=== PATIENT | female | born 1950 | race Caucasian/White ===

== ENCOUNTER → 2016-09-30 | Outpatient (CLI) | payer OTHER ==
[~2016-09-30] MED LIST: ALPRAZOLAM0.25 M2 PO; COUMADIN6 M1 PO; FUROSEMIDE80 MG PO; K-Dur 20MEQ20 MEQ PO; KLOR-CON M2020 ME1 PO; LASIX20 MG PO; NORVASC5 MG PO; NYSTATIN OINTME30 GM T; PAROXETINE HCL20 MG PO; PAROXETINE20 MG PO; PROAIR HFA0.09 MG/AC INH; Septra Ds 800 M1 TAB PO; VITAMIN D-32000 UNIT PO; XANAX0.25 MG PO; ZESTRIL20 MG PO
== END | disposition home or self-care (01) ==
LOC: MAMMO 09-15 14:30
DX: Z12.31 Encounter for screening mammogram for malignant neoplasm of breast (principal)

== ENCOUNTER 2017-03-25 11:57 | Inpatient (IN) | payer OTHER ==
[~2017-03-25] VITALS: Ht 205.7 cm; Wt 140.3 kg
[~2017-03-25 11:57] MED LIST changes: -COUMADIN6 M1 PO; +COUMADIN6 M2 PO
[2017-03-25 12:05] VITALS: BP 152/92
[2017-03-25 12:44] LABS: BASO % 0.1 % (0.0-1.0); EOS % 0.3 % (1.0-4.0); HEMATOCRIT 39.2 % (37.0-47.0); HEMOGLOBIN 12.7 g/dl (12.0-16.0); LYMPH # 1.4 10*3/uL (1.3-4.4); LYMPH % 18.2 % (27.0-41.0); MEAN CELL VOLUME 92.5 fl (81.0-99.0); MEAN CORPUSCULAR HGB CONC 32.4 g/dl (33.0-37.0); MEAN PLATELET VOLUME 9.8 fl (9.6-12.3); MONO # 0.5 10*3/uL (0.1-1.0); NEUT # 5.5 10*3/uL (2.3-7.9); NEUT % 73.9 % (47.0-73.0); PLATELET COUNT AUTOMATED 205 10*3/uL (130-400); RED BLOOD COUNT 4.24 10*6/uL (4.10-5.10); RED CELL DISTRI WIDTH 12.5 % (0-14.5); WHITE BLOOD COUNT 7.4 10*3/uL (4.8-10.8)
[2017-03-25 12:53] LABS: ACT PARTIAL THROMBO TIME 28.7 SECONDS (20.8-31.5); INTERNATIONAL NORM RATIO 1.9 (2.0-3.5)
[2017-03-25 13:02] VITALS: BP 133/81
[2017-03-25 13:02] LABS: ALBUMIN 3.4 gm/dl (3.1-4.5); ALKALINE PHOSPHATASE 65 U/L (45-117); BUN 15 mg/dl (7-24); CHLORIDE 102 mmol/L (98-107); CREATININE 1.03 mg/dL (0.55-1.02); LIPASE 136 U/L (73-393); MAGNESIUM 2.2 mg/dL (1.5-2.1); POTASSIUM 3.6 mmol/L (3.5-5.1); SGOT/AST 36 IU/L (3-35); SGPT/ALT 32 U/L (12-78); SODIUM 139 mmol/L (136-145); TOTAL PROTEIN 7.3 gm/dL (6.4-8.2)
[2017-03-25 13:04] LABS: TROPONIN I < 0.015 ng/ml (<0.045)
--- NOTE | 2017-03-25 13:53 | NUR ---
PT TO CT SCAN AT THIS TIME---CESILIA BARRERA RN
[2017-03-25 15:46] VITALS: BP 113/69
[2017-03-25 17:21] VITALS: BP 129/48
--- NOTE | 2017-03-25 17:38 | NUR ---
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 Pt. arrived via bed from ER. Chief complaint: LLQ ABD PAIN R/T CONSTIPATION. EUNICE CRESPO
[2017-03-25] MEDS ORDERED: ZOCOR20 MG PO (18:17)
[2017-03-25] MEDS ORDERED: AMLODIPINE BESYL5 MG PO (18:17)
[2017-03-25 20:00] VITALS: BP 138/61
--- NOTE | 2017-03-25 21:00 | NUR ---
RESTING IN BED WITH EYES CLOSED. RESPIRATIONS EASY. LUNGS DIMINISHED. PULSE OX 97% RA. ABD SOFTLY OBESE WITH NORMOACTIVE BOWEL SOUNDS. NO ACTIVE BM DESPITE RECEIVING MAG CITRATE AND LACTULOSE. BLE DISCOLORED, CHRONIC IN NATURE. IV FLUIDS INFUSING PER ORDER. CALL LIGHT WITHIN REACH. NO VOICED COMPLAINTS
[2017-03-26] VITALS: BP 97/52
--- NOTE | 2017-03-26 | NUR ---
SLEEPING. NO DISTRESS NOTED. VSS. IV FLUIDS MAINTAINED. CALL LIGHT WITHIN REACH
--- NOTE | 2017-03-26 03:00 | NUR ---
SLEEPING. IV FLUIDS MAINTAINED. CALL LIGHT WITHIN REACH
--- NOTE | 2017-03-26 06:00 | NUR ---
SLEPT THROUGHOUT NIGHT WITH NO DISTRESS NOTED. RESPIRATIONS EASY. MINIMAL RESULTS FROM EARLIER LAXATIVES. IV FLUIDS MAINTAINED. CALL LIGHT WITHIN REACH. NO VOICED COMPLAINTS THIS SHIFT
[2017-03-26 06:11] LABS: BASO % 0.4 % (0.0-1.0); EOS # 0.1 10*3/uL (0.0-0.4); EOS % 1.7 % (1.0-4.0); HEMATOCRIT 38.2 % (37.0-47.0); HEMOGLOBIN 11.7 g/dl (12.0-16.0); LYMPH # 1.8 10*3/uL (1.3-4.4); LYMPH % 37.5 % (27.0-41.0); MEAN CELL VOLUME 95.5 fl (81.0-99.0); MEAN CORPUSCULAR HGB 29.3 pg (27.0-31.0); MEAN CORPUSCULAR HGB CONC 30.6 g/dl (33.0-37.0); MEAN PLATELET VOLUME 10.4 fl (9.6-12.3); MONO # 0.5 10*3/uL (0.1-1.0); MONO % 9.9 % (3.0-9.0); NEUT # 2.4 10*3/uL (2.3-7.9); NEUT % 50.1 % (47.0-73.0); PLATELET COUNT AUTOMATED 201 10*3/uL (130-400); WHITE BLOOD COUNT 4.8 10*3/uL (4.8-10.8)
[2017-03-26 06:43] LABS: ALBUMIN 3.2 gm/dl (3.1-4.5); BUN 14 mg/dl (7-24); CHLORIDE 104 mmol/L (98-107); CHOLESTEROL 174 mg/dL (<200); CREATININE 1.02 mg/dL (0.55-1.02); MAGNESIUM 2.6 mg/dL (1.5-2.1); PHOSPHOROUS 4.2 mg/dL (2.5-4.9); POTASSIUM 3.9 mmol/L (3.5-5.1); SGOT/AST 26 IU/L (3-35); SGPT/ALT 28 U/L (12-78); SODIUM 141 mmol/L (136-145); TRIGLYCERIDES 105 mg/dl (<150); VLDL CHOLESTEROL 21 mg/dL (6-40)
[2017-03-26 06:51] LABS: ALKALINE PHOSPHATASE 57 U/L (45-117); HDL CHOLESTEROL 53 mg/dl (40-60); LDL CHOLESTEROL 100 mg/dL (9-159); TOTAL PROTEIN 6.6 gm/dL (6.4-8.2)
[2017-03-26 06:53] LABS: INTERNATIONAL NORM RATIO 1.7 (2.0-3.5)
[2017-03-26 06:58] LABS: VITAMIN D, 25-HYDROXY 37.7 ng/mL (30-100)
[2017-03-26 07:38] LABS: BILIRUBIN 1+ (NEGATIVE); BLOOD NEGATIVE (NEGATIVE); CLARITY SL CLOUDY (CLEAR); COLOR YELLOW (YELLOW); GLUCOSE NEGATIVE (NEGATIVE); KETONE TRACE (NEGATIVE); LEUKO ESTERASE NEGATIVE (NEGATIVE); NITRITE NEGATIVE (NEGATIVE); PH 5.5 (5.0-9.0); UROBILINOGEN 0.2 E.U./dl (0.2-1.0)
--- NOTE | 2017-03-26 07:38 | NUR ---
PATIENT COMPLAINING OF BEING COLD. WARM BLANKET APPLIED. THEN PATIENT COMPLAINED OF ALL OVER BODY ACHES RATING A 5/10 ON PAINSCALE. TYLENOL 650MG GIVEN. BED IS IN LOW POSITION. CALL LIGHT WITHIN REACH.
[2017-03-26 07:47] LABS: BACTERIA TRACE; WBC 0-2 wbc/hpf (0-5)
[2017-03-26 08:00] VITALS: BP 137/70
--- NOTE | 2017-03-26 08:34 | NUR ---
PATIENT STATES THAT THE TYLENOL IS WORKING.
[2017-03-26 12:00] VITALS: BP 122/55
--- NOTE | 2017-03-26 12:26 | NUR ---
TYLENOL 650MG GIVEN FOR ABDOMINAL CRAMPING RATING A 10/10 ON PAINSCALE.
[2017-03-26] MEDS ORDERED: MIRALAX POWDER17 G1 PO (13:05)
[2017-03-26] MEDS ORDERED: AUGMENTIN 875875 MG PO (13:05)
--- NOTE | 2017-03-26 13:40 | NUR ---
PT CRYING HYSTERICALLY AND TRASHING ABOUT ON BED. STATES SHE AM HAVING PAIN AND THAT SHE CAN'T GO HOME LIKE THIS BECAUSE SHE HAS NO ONE TO TAKE CARE OF HER. DR ARORA NOTIFIED PER Harris PITTS RN OF PT C/O PAIN. AND STATES SHE WILL PUT ORDERS IN
--- NOTE | 2017-03-26 14:00 | NUR ---
MEDICATED WITH BENTYL AND TORODAL ORDERED. PT CONTINUES TO CRY BUT IS MUCH CALMER NOW THEN PREVIOUSLY.
--- NOTE | 2017-03-26 14:35 | NUR ---
PT RESTING QUIETLY WITH EYES CLOSED.
[2017-03-26 16:00] VITALS: BP 122/60
--- NOTE | 2017-03-26 16:17 | NUR ---
PT UP TO BSC TO HAVE EXTRA LARGE FORMED AND LOOSE BM AND PASS A LOT OF GAS.
--- NOTE | 2017-03-26 19:16 | NUR ---
DISCHARGED TO HOME IN CARE OF SELF VIA CAB. PT UPSET ABOUT BEING DISCHARGED, STATES I HAVE DIARRHEA NOW. EXPLAINED THAT SHE HAD A LOT OF LAXATIVES AND THAT LOOSE STOOL SHOULD BE EXPECTED. THREW PERSCRIPTIONS AT ME AND SAID TO TELL THE DOCTOR I AM NOT TAKING THOSE. UPSET THAT SHE WAS GETTING A SCRIPT FOR MIRALAX WHEN SHE HAS DIARRHEA, ATTEMPTED TO TELL PT THAT IT WAS SO SHE DID NOT GET CONSTIPATED AGAIN, BUT REFUSES TO LISTEN. ALSO SAYS SHE DOES NOT KNOW WHY SHE NEEDS AN ANTIBIOTIC BECAUSE THE DOCTOR DID NOT EVEN TELL HER WHY SHE NEEDED IT. PT DID TAKE THE FLU VACCINE BEFORE DISCHARGE.
== END 2017-03-26 19:16 | disposition home or self-care (01) | DRG 392 ==
LOC: ED 11:57 → 4E 16:47 → EDHOLD 16:47 → 4E 17:01
PROVIDERS: Emergency Medicine; Internal Medicine; ADMIT Internal Medicine
DX: K59.00 Constipation, unspecified (principal); E87.2 Acidosis; D68.9 Coagulation defect, unspecified; E44.1 Mild protein-calorie malnutrition; F33.9 Major depressive disorder, recurrent, unspecified; N18.3 Chronic kidney disease, stage 3 (moderate); F41.1 Generalized anxiety disorder; E66.01 Morbid (severe) obesity due to excess calories; E78.00 Pure hypercholesterolemia, unspecified; E55.9 Vitamin D deficiency, unspecified; M47.819 Spondylosis without myelopathy or radiculopathy, site unspecified; D72.825 Bandemia; R73.9 Hyperglycemia, unspecified; K04.7 Periapical abscess without sinus; I12.9 Hypertensive chronic kidney disease with stage 1 through stage 4 chronic kidney disease, or unspecified chronic kidney disease; Z68.33 Body mass index [BMI] 33.0-33.9, adult; Z79.899 Other long term (current) drug therapy; Z79.01 Long term (current) use of anticoagulants; Z90.710 Acquired absence of both cervix and uterus; Z86.718 Personal history of other venous thrombosis and embolism; Z91.012 Allergy to eggs; Z88.1 Allergy status to other antibiotic agents; Z85.42 Personal history of malignant neoplasm of other parts of uterus; Z86.711 Personal history of pulmonary embolism; Z80.8 Family history of malignant neoplasm of other organs or systems; Z82.0 Family history of epilepsy and other diseases of the nervous system

== ENCOUNTER 2019-11-11 12:44 | Inpatient (IN) | payer OTHER ==
[~2019-11-11] VITALS: Ht 154.9 cm; Wt 122.5 kg
[~2019-11-11 12:44] MED LIST changes: +AMLODIPINE BESYL5 MG PO; +AUGMENTIN 875875 MG PO; +MIRALAX POWDER17 G1 PO; +ZOCOR20 MG PO
[2019-11-11 13:12] LABS: BASO % 0.2 % (0.0-1.0); EOS % 0.1 % (1.0-4.0); HEMATOCRIT 40.5 % (37.0-47.0); LYMPH # 0.7 10*3/uL (1.3-4.4); LYMPH % 7.9 % (27.0-41.0); MEAN CELL VOLUME 94.2 fl (81.0-99.0); MEAN CORPUSCULAR HGB 29.8 pg (27.0-31.0); MEAN CORPUSCULAR HGB CONC 31.6 g/dl (33.0-37.0); MEAN PLATELET VOLUME 10.8 fl (9.6-12.3); MONO # 0.4 10*3/uL (0.1-1.0); MONO % 4.2 % (3.0-9.0); NEUT # 7.6 10*3/uL (2.3-7.9); NEUT % 86.9 % (47.0-73.0); PLATELET COUNT AUTOMATED 227 10*3/uL (130-400); RED CELL DISTRI WIDTH 13.5 % (0-14.5); WHITE BLOOD COUNT 8.7 10*3/uL (4.8-10.8)
[2019-11-11 13:18] LABS: ALBUMIN 3.3 gm/dl (3.1-4.5); ALKALINE PHOSPHATASE 96 U/L (45-117); BUN 17 mg/dl (7-24); CHLORIDE 107 mmol/L (98-107); CREATININE 1.28 mg/dL (0.55-1.02); POTASSIUM 3.6 mmol/L (3.5-5.1); SGOT/AST 24 IU/L (3-35); SGPT/ALT 21 U/L (12-78); SODIUM 142 mmol/L (136-145); TOTAL PROTEIN 6.6 gm/dL (6.4-8.2)
[2019-11-11 13:20] LABS: TROPONIN I < 0.015 ng/ml (<0.045)
[2019-11-11 13:32] VITALS: BP 117/72
[2019-11-11 14:12] LABS: INTERNATIONAL NORM RATIO 9.3 (2.0-3.5)
[2019-11-11 14:13] LABS: ACT PARTIAL THROMBO TIME 95.7 SECONDS (20.0-32.1)
--- NOTE | 2019-11-11 15:05 | NUR ---
NURSE REPORT TO SUSIE COLEMAN, FOR CONTINUATION OF CARE.
--- NOTE | 2019-11-11 15:21 | NUR ---
PT GIVEN TRAY. IN NO ACUTE DISTRESS AT THIS TIME
[2019-11-11 17:52] VITALS: BP 98/56
--- NOTE | 2019-11-11 17:52 | NUR ---
A 69, admitted to 4E, under the services of NAHED Jiang DO with a diagnosis of SUPRATHERAPUTIC INR. Chief complaint is DIZZYNESS, SOB, WEAKNESS. Patient arrived via ambulatory from ER. Monitor applied. Initial assessment completed. Vital signs taken and recorded. NAHED JIANG DO notified of admission to the unit. Orders received. See assessment for past medical history, medications and allergies. Patient and/or family oriented to unit. [facility] visitation policy reviewed. Clothing/patient valuable form completed. JAMES BAUER
[2019-11-11] MEDS ORDERED: LEVOTHYROXINE50 MCG PO (18:30)
[2019-11-11] MEDS ORDERED: SIMVASTATIN20 MG PO (18:31)
[2019-11-11] MEDS ORDERED: FUROSEMIDE40 MG PO (18:31)
[2019-11-11] MEDS ORDERED: CITALOPRAM20 MG PO (18:32)
[2019-11-11] MEDS ORDERED: LISINOPRIL20 MG PO (18:33)
--- NOTE | 2019-11-11 18:36 | NUR ---
MED REC UPDATED VIA HOME LIST PROVIDED BY PATIENT.
--- NOTE | 2019-11-11 18:54 | NUR ---
CRITIAL LACTIC ACID CALLED TO OF 3.9. NO NEW ORDERS AT THIS TIME. IVF ON EMAR.
--- NOTE | 2019-11-11 18:55 | NUR ---
AWARE OF + ORTHOSTATIC BPs.
--- NOTE | 2019-11-11 19:00 | NUR ---
ASSUMED CARE FOR THIS PT AT THIS TIME. PT HAD URINATED IN BSC. URINE SAMPLE OBTAINED FOR UA TO . URINE DARK RED BLOOD. PT C/O FEELING COLD, BLANKETS PLACED ON PT AND HEAT TURNED UP IN ROOM. PT SKIN COOL TO TOUCH AND PALE. WILL NOTIFY . BED ALARM ON W/WHEELS LOCKED AND CALL LIGHT IN REACH.
--- NOTE | 2019-11-11 19:36 | NUR ---
WOUND CARE COMPLETED PER ORDERS.
[2019-11-11 20:00] VITALS: BP 110/43
[2019-11-11 20:07] LABS: ACT PARTIAL THROMBO TIME 88.4 SECONDS (20.0-32.1); INTERNATIONAL NORM RATIO 9.3 (2.0-3.5)
--- NOTE | 2019-11-11 20:11 | NUR ---
INFORMED OF CRITICAL INR 9.3 AND APTT 88.4. ALSO INFORMED OF KELSY RED BLOOD IN URINE. SAID SHE WOULD LOOK AT PTs CHART.
[2019-11-11 20:13] LABS: BILIRUBIN 2+ (NEGATIVE); BLOOD 3+ (NEGATIVE); CLARITY CLOUDY (CLEAR); GLUCOSE NEGATIVE (NEGATIVE); KETONE NEGATIVE (NEGATIVE); SPECIFIC GRAVITY 1.015 (1.005-1.030); UROBILINOGEN 0.2 E.U./dl (0.2-1.0)
[2019-11-11 20:18] LABS: COLOR BROWN (YELLOW); LEUKO ESTERASE TRACE (NEGATIVE); NITRITE NEGATIVE (NEGATIVE)
[2019-11-11 20:19] LABS: RBC TNTC rbc/hpf (0-2)
[2019-11-11 20:20] LABS: BACTERIA TRACE
[2019-11-11 20:45] VITALS: BP 102/55
--- NOTE | 2019-11-11 21:20 | NUR ---
Received patient from nurse Mayorga. Report received. Patient stable, no signs of distress. Patient denies any shortness of breath, or chest pain. Awaiting FFP to give. Patient left with call light in reach.
[2019-11-11 21:22] LABS: BASO % 0.3 % (0.0-1.0); EOS % 0.3 % (1.0-4.0); HEMATOCRIT 36.3 % (37.0-47.0); LYMPH # 1.5 10*3/uL (1.3-4.4); LYMPH % 23.1 % (27.0-41.0); MEAN CELL VOLUME 92.8 fl (81.0-99.0); MEAN CORPUSCULAR HGB 29.4 pg (27.0-31.0); MEAN CORPUSCULAR HGB CONC 31.7 g/dl (33.0-37.0); MEAN PLATELET VOLUME 10.1 fl (9.6-12.3); MONO # 0.5 10*3/uL (0.1-1.0); MONO % 8.3 % (3.0-9.0); NEUT # 4.4 10*3/uL (2.3-7.9); NEUT % 67.7 % (47.0-73.0); PLATELET COUNT AUTOMATED 191 10*3/uL (130-400); RED BLOOD COUNT 3.91 10*6/uL (4.10-5.10); RED CELL DISTRI WIDTH 13.9 % (0-14.5); WHITE BLOOD COUNT 6.5 10*3/uL (4.8-10.8)
--- NOTE | 2019-11-11 21:30 | NUR ---
PT TRANSFERRED BACK TO ICU BED 5 VIA BED. ALL BELONGINGS SENT W/PT. REPORT GIVEN TO SUSIE CROWE.
[2019-11-11 22:30] VITALS: BP 114/50
--- NOTE | 2019-11-11 22:33 | NUR ---
FFP STARTED ON PATIENT, WILL MONITOR FOR REACTIONS.
--- NOTE | 2019-11-11 23:27 | NUR ---
24 HR chart check completed.
[2019-11-11 23:39] VITALS: BP 108/50
--- NOTE | 2019-11-11 23:40 | NUR ---
Transfusion complete. No reactions noted. Patient tolerated well.
[2019-11-12] VITALS (12 sets, daily range): BP systolic 96–120; BP diastolic 45–65
--- NOTE | 2019-11-12 | NUR ---
Patient requested something to help her sleep. Restoril given. Will monitor and reassess.
--- NOTE | 2019-11-12 01:00 | NUR ---
Patient resting, no signs of distress. Restoril effective.
[2019-11-12 04:29] LABS: BASO % 0.2 % (0.0-1.0); EOS # 0.1 10*3/uL (0.0-0.4); EOS % 1.6 % (1.0-4.0); HEMATOCRIT 30.8 % (37.0-47.0); LYMPH # 1.5 10*3/uL (1.3-4.4); LYMPH % 33.4 % (27.0-41.0); MEAN CELL VOLUME 94.2 fl (81.0-99.0); MEAN CORPUSCULAR HGB 29.1 pg (27.0-31.0); MEAN CORPUSCULAR HGB CONC 30.8 g/dl (33.0-37.0); MEAN PLATELET VOLUME 10.7 fl (9.6-12.3); MONO # 0.4 10*3/uL (0.1-1.0); MONO % 9.4 % (3.0-9.0); NEUT # 2.4 10*3/uL (2.3-7.9); NEUT % 55.2 % (47.0-73.0); PLATELET COUNT AUTOMATED 155 10*3/uL (130-400); RED BLOOD COUNT 3.27 10*6/uL (4.10-5.10); RED CELL DISTRI WIDTH 13.9 % (0-14.5); WHITE BLOOD COUNT 4.4 10*3/uL (4.8-10.8)
[2019-11-12 04:43] LABS: INTERNATIONAL NORM RATIO 1.4 (2.0-3.5)
[2019-11-12 04:59] LABS: ALBUMIN 2.9 gm/dl (3.1-4.5); ALKALINE PHOSPHATASE 82 U/L (45-117); BUN 16 mg/dl (7-24); CHLORIDE 105 mmol/L (98-107); CREATININE 0.81 mg/dL (0.55-1.02); POTASSIUM 3.5 mmol/L (3.5-5.1); SGOT/AST 19 IU/L (3-35); SGPT/ALT 20 U/L (12-78); SODIUM 141 mmol/L (136-145); TOTAL PROTEIN 5.8 gm/dL (6.4-8.2)
--- NOTE | 2019-11-12 05:50 | NUR ---
Patient had no output throughout the night, bladder scan showed less than 100. Patient denies the need to use the bedside at this time. Dr. Gutiérrez notified. Awaiting earlier output from 4E that was not documented.
--- NOTE | 2019-11-12 06:20 | NUR ---
Patient able to get up to bedside, had 300ml of blood tinged urine. Patient also had some old blood in her depends. Dr. Gifford notified.
--- NOTE | 2019-11-12 07:58 | NUR ---
MEDICATED WITH 2 TYLENOL FOR COMPLAINTS OF PAIN IN HANDS AND BUTTOCKS. RATES PAIN A 6 ON A PAIN SCALE OF 1-10
--- NOTE | 2019-11-12 08:00 | NUR ---
ORTHOS BP DONE. PATIENT IS ASYMPTOMATIC WHEN STANDING. PULSE OX 100% ON ROOM AIR. LUNGS CLEAR BILATERALLY. BRUISING NOTED TO HANDS, LEGS, BACK AND THIGHS. LOWER LEGS DISCOLORED. BP 120/64. AFEBRILE. PLACED UP INTO CHAIR WITH ASSIST TIMES ONE.
--- NOTE | 2019-11-12 09:35 | NUR ---
Nutrition Teacher in to talk to patient. Patient states lives at home alone with her family checking in on her. There are 0 steps in the home. Physician: Dr. Deanna Castrejon [facility] Home health services: none Patient's level of ADLs: MINIMAL ASSIST Patient has working utilities: yes DME: cane Follow-up physician's appointment after d/c: will be made by the hospitalist nurse director upon discharge Does patient want to access PORTAL?: no Discharge plan discussed with patient. She is sitting up in her bedside chair eating breakfast without distress noted. She states she lives alone with her family checking in on her. She is independent in her ADLs and uses a cane for ambulation due to arthritis in her knees. Discussed home health care services and she denies any home needs at this time. When medically stable she will be discharged to home. She states her brother will provide transportation on discharge. KYLE DAMON
--- NOTE | 2019-11-12 14:19 | NUR ---
MEDICATED WITH 2 TYLENOL FOR COMPLAINTS OF ALL OVER PAIN. RATES PAIN A 7 ON A PAIN SCALE OF 1-10
--- NOTE | 2019-11-12 15:00 | NUR ---
VOICES THAT TYLENOL WAS EFFECTIVE FOR PAIN
--- NOTE | 2019-11-12 19:56 | NUR ---
24 HR chart check completed.
--- NOTE | 2019-11-12 20:00 | NUR ---
Patient up in bed on phone, states the tylenol is helping with pain in her legs which she states is from not being ambulatory much lately. Patient denies any needs at this time. Patient left with call light in reach.
[2019-11-13] VITALS: BP 101/58
[2019-11-13 04:00] VITALS: BP 117/69
[2019-11-13 05:57] LABS: BUN 16 mg/dl (7-24); CHLORIDE 106 mmol/L (98-107); CREATININE 0.84 mg/dL (0.55-1.02); POTASSIUM 3.8 mmol/L (3.5-5.1); SODIUM 143 mmol/L (136-145)
[2019-11-13 06:19] LABS: BASO % 0.5 % (0.0-1.0); EOS # 0.1 10*3/uL (0.0-0.4); EOS % 3.4 % (1.0-4.0); HEMATOCRIT 32.7 % (37.0-47.0); LYMPH # 1.4 10*3/uL (1.3-4.4); LYMPH % 35.6 % (27.0-41.0); MEAN CELL VOLUME 95.9 fl (81.0-99.0); MEAN CORPUSCULAR HGB 29.3 pg (27.0-31.0); MEAN CORPUSCULAR HGB CONC 30.6 g/dl (33.0-37.0); MEAN PLATELET VOLUME 11.3 fl (9.6-12.3); MONO # 0.4 10*3/uL (0.1-1.0); MONO % 9.4 % (3.0-9.0); NEUT # 1.9 10*3/uL (2.3-7.9); NEUT % 50.6 % (47.0-73.0); PLATELET COUNT AUTOMATED 171 10*3/uL (130-400); RED BLOOD COUNT 3.41 10*6/uL (4.10-5.10); RED CELL DISTRI WIDTH 13.9 % (0-14.5); WHITE BLOOD COUNT 3.8 10*3/uL (4.8-10.8)
[2019-11-13 06:33] LABS: INTERNATIONAL NORM RATIO 1.2 (2.0-3.5)
--- NOTE | 2019-11-13 06:49 | NUR ---
Tylenol given for pain in legs and back. Patient rates 8/10. Will monitor and reassess.
--- NOTE | 2019-11-13 07:27 | NUR ---
Shift chart check completed.24 HR chart check completed.
[2019-11-13 08:00] VITALS: BP 122/60
--- NOTE | 2019-11-13 11:19 | NUR ---
EARLIER SHE WAS ASSISTED TO AMBULATE WITH HER CANE OUT OF HER ROOM TO W/C. TAKEN TO SHOWER ROOM WHERE SHE SHOWERED HERSELF. AMBULATED WITH HER CANE TO W/C AND TAKEN BACK TO HER ROOM, WHERE SHE HAS BEEN UP AND ABOUT GATHERING HER BELONGINGS FOR DISCHARGE. SHE PLANS TO EAT LUNCH AND THEN CALL A CAB TO TAKE HER HOME.
--- NOTE | 2019-11-13 13:37 | NUR ---
DISCHARGE INSTRUCTIONS TO PATIENT. PT ESCORTED TO ER ENTRANCE AND PLACED HER IN A CAB TO TAKE HER HOME. DISCHARGED WITH ALL OF HER BELONGINGS IN STABLE CONDITION.
== END 2019-11-13 13:37 | disposition home or self-care (01) | DRG 149 ==
LOC: ED 12:44 → EDHOLD 16:53 → 4E 16:53 → ICCU 16:53 → 4E 17:13 → ICCU 21:04
PROVIDERS: Internal Medicine; Student in an Organized Health Care Education/Training Program; ADMIT Emergency Medicine
PROC: 30233K1 Transfusion of Nonautologous Frozen Plasma into Peripheral Vein, Percutaneous Approach (ICD-10-PCS; principal; 2019-11-11)
DX: R42 Dizziness and giddiness (principal); E87.2 Acidosis; E44.1 Mild protein-calorie malnutrition; Z68.44 Body mass index [BMI] 60.0-69.9, adult; F33.0 Major depressive disorder, recurrent, mild; R31.0 Gross hematuria; R79.1 Abnormal coagulation profile; D72.810 Lymphocytopenia; E66.01 Morbid (severe) obesity due to excess calories; I12.9 Hypertensive chronic kidney disease with stage 1 through stage 4 chronic kidney disease, or unspecified chronic kidney disease; F41.1 Generalized anxiety disorder; K59.00 Constipation, unspecified; E78.00 Pure hypercholesterolemia, unspecified; E55.9 Vitamin D deficiency, unspecified; N18.3 Chronic kidney disease, stage 3 (moderate); R06.00 Dyspnea, unspecified; S60.222A Contusion of left hand, initial encounter; S60.221A Contusion of right hand, initial encounter; S30.0XXA Contusion of lower back and pelvis, initial encounter; S30.1XXA Contusion of abdominal wall, initial encounter; W18.30XA Fall on same level, unspecified, initial encounter; Y93.89 Activity, other specified; Y92.89 Other specified places as the place of occurrence of the external cause; Y99.8 Other external cause status; Z86.711 Personal history of pulmonary embolism; Z88.1 Allergy status to other antibiotic agents; Z91.012 Allergy to eggs; Z90.710 Acquired absence of both cervix and uterus; Z82.0 Family history of epilepsy and other diseases of the nervous system; Z80.8 Family history of malignant neoplasm of other organs or systems; Z85.42 Personal history of malignant neoplasm of other parts of uterus

== ENCOUNTER 2019-12-23 00:18 | Inpatient (IN) | payer OTHER ==
[~2019-12-23] VITALS: Ht 157.4 cm; Wt 114.8 kg
[~2019-12-23 00:18] MED LIST changes: +CITALOPRAM20 MG PO; +FUROSEMIDE40 MG PO; +LEVOTHYROXINE50 MCG PO; +LISINOPRIL20 MG PO; +SIMVASTATIN20 MG PO
[2019-12-23 00:24] VITALS: BP 100/41
[2019-12-23 01:05] LABS: BASO % 0.1 % (0.0-1.0); HEMATOCRIT 41.2 % (37.0-47.0); LYMPH # 0.6 10*3/uL (1.3-4.4); LYMPH % 5.3 % (27.0-41.0); MEAN CORPUSCULAR HGB 29.7 pg (27.0-31.0); MEAN CORPUSCULAR HGB CONC 32.3 g/dl (33.0-37.0); MEAN PLATELET VOLUME 10.7 fl (9.6-12.3); MONO # 0.7 10*3/uL (0.1-1.0); MONO % 6.2 % (3.0-9.0); NEUT # 10.2 10*3/uL (2.3-7.9); NEUT % 87.8 % (47.0-73.0); PLATELET COUNT AUTOMATED 238 10*3/uL (130-400); RED BLOOD COUNT 4.48 10*6/uL (4.10-5.10); RED CELL DISTRI WIDTH 14.4 % (0-14.5); WHITE BLOOD COUNT 11.6 10*3/uL (4.8-10.8)
[2019-12-23 01:21] LABS: ALBUMIN 3.7 gm/dl (3.1-4.5); ALKALINE PHOSPHATASE 74 U/L (45-117); BUN 20 mg/dl (7-24); CHLORIDE 105 mmol/L (98-107); CREATININE 2.36 mg/dL (0.55-1.02); POTASSIUM 3.2 mmol/L (3.5-5.1); SGOT/AST 16 IU/L (3-35); SGPT/ALT 14 U/L (12-78); SODIUM 137 mmol/L (136-145); TOTAL PROTEIN 7.6 gm/dL (6.4-8.2)
[2019-12-23 01:23] LABS: TROPONIN I < 0.015 ng/ml (<0.045)
[2019-12-23 01:28] LABS: INTERNATIONAL NORM RATIO > 9.3 (2.0-3.5)
[2019-12-23 02:36] LABS: BILIRUBIN 1+ (NEGATIVE); BLOOD 3+ (NEGATIVE); CLARITY CLOUDY (CLEAR); COLOR YELLOW (YELLOW); GLUCOSE NEGATIVE (NEGATIVE); KETONE TRACE (NEGATIVE); LEUKO ESTERASE NEGATIVE (NEGATIVE); NITRITE NEGATIVE (NEGATIVE); UROBILINOGEN 0.2 E.U./dl (0.2-1.0)
--- NOTE | 2019-12-23 02:41 | NUR ---
PT REFUSED WOUND PICTURES. DOCUMENTED 2 WOUNDS NOTED TO REYNA UNDER BREASTS.
[2019-12-23 02:50] VITALS: BP 114/43
--- NOTE | 2019-12-23 02:50 | NUR ---
A 69, admitted to , under the services of NAHED Jiang DO with a diagnosis of NANCY, COUMADIN TOXICITY, SEPSIS. Chief complaint is FALLS. Patient arrived via bed from ER. Monitor applied. Initial assessment completed. Vital signs taken and recorded. NAHED JIANG DO / DR AMBRIZ notified of admission to the unit. Orders received. See assessment for past medical history, medications and allergies. Patient and/or family oriented to unit. [facility] visitation policy reviewed. Clothing/patient valuable form completed. JAMES MCNALLY
[2019-12-23 02:51] LABS: EPITHELIAL CELLS 41-50
[2019-12-23 02:52] LABS: RBC 31-40 rbc/hpf (0-2)
[2019-12-23 02:53] LABS: BACTERIA 2+
--- NOTE | 2019-12-23 03:00 | NUR ---
PT TRANSPORTED TO AT THIS TIME IN STABLE CONDITION. BEDSIDE REPORT GIVEN TO SUSIE RAMIREZ.
--- NOTE | 2019-12-23 03:31 | NUR ---
ARIANNE VALLEJO [id number] Please refer to the physician's history and physical for past medical history, comorbid conditions, and allergies. Diagnosis: NANCY(ACUTE KIDNEY INJURY) COUMADIN TOXICITY SEPSIS Jed Score: 17,AT RISK WOUND DESCRIPTIONS: Wound Number: 1 Location of the wound: right and left breast Type of wound: fungal Thickness: Partial Size: 13.0cm x 49.5cm x 0.1cm Tunneling: none Undermining: none Sinus Tract: none Presence of Exudate: Serous Amount: Light Color: Red Odor: Musty Periwound Skin Appearance: Normal Wound edges: approximated Pain (associated with wound): none at time of assessment How does patient state this happened? pt states this started about one month ago and she states that this happens when it gets warmer outside typically Wound Number: 2 Location of the wound: bilateral groins and periarea Type of wound: fungal Thickness: Partial Tunneling: none Undermining: none Sinus Tract: none Presence of Exudate: none Amount: None Color: Red and blanchable Odor: None Periwound Skin Appearance: Normal Wound edges: closed Pain (associated with wound): none at time of assessment How does patient state this happened? pt states this started about one month ago and she states that this happens when it gets warmer outside Patient bilateral feet ecchymotic areas noted at time of assessment. Patient states this is from her fall on the concrete. No open areas noted at time of assessment. Entire buttocks is red and blanchable. No open areas noted at time of assessment. Patient states she was incontient of feces this afternoon and was unable to clean herself because she was unable to reach her back. Bed bath given at this time along with Jenae RICHARDS. Surface the patient is resting on: Position Pro SKIN PREVENTION RECOMMENDATION: 1. Pressure redistribution support surface as appropriate 2. Elevate heels 3. Remove boots/TEDS every shift and reapply 4. Head of bed 30 degrees as tolerated 5. Assess nutrition and hydration 6. Manage moisture 7. Avoid the use of containment devices while in bed 8. Use absorptive products on surfaces limit layers of linens on bed 9. Turn and reposition every 1-2 hours in bed and every 1 hour in chair as tolerated 10. Weight shifts every 15 minutes while up in chair 11. Offloading with pillows or device to keep heels elevated off bed 12. Monitor skin at least every shift 13. Inspect under medical devices twice a day WOUND TREATMENT RECOMMENDATIONS: Wheelchair cushion when oob Heel raiser pro boots to bilateral feet Cleanse entire buttocks with soap and water and apply hydraguard every shift and prn for soiling Cleanse bilateral breasts, periarea and bilateral groins with soap and water pat areas dry then apply nystatin powder every 8 hours.
--- NOTE | 2019-12-23 04:00 | NUR ---
VOMITING LARGE EMSIS OF UNDIGESTED FOOD. MEDICATED WITH ZOFRAN PER PRN ORDER. IV FLUIDS MAINTAINED. WILL MONITOR
--- NOTE | 2019-12-23 04:40 | NUR ---
MEDS EFFECTIVE. RESTING WITH EYES CLOSED. RESPIRATIONS EASY.
--- NOTE | 2019-12-23 04:48 | NUR ---
Patient states she will care for these areas when she returns home and doesn't wish to follow up in an outpatient setting at this time
--- NOTE | 2019-12-23 05:20 | NUR ---
DR AMBRIZ CONTACTED, INFORMED MED REC UP TO DATE. QUESTIONED REGARDING TREATMENT OF CRITICAL INR, NO FURTHER ORDERS RECEIVED AT THIS TIME
[2019-12-23 06:28] LABS: BASO % 0.1 % (0.0-1.0); HEMATOCRIT 37.1 % (37.0-47.0); LYMPH % 10.6 % (27.0-41.0); MEAN CELL VOLUME 91.2 fl (81.0-99.0); MEAN CORPUSCULAR HGB 30.2 pg (27.0-31.0); MEAN CORPUSCULAR HGB CONC 33.2 g/dl (33.0-37.0); MEAN PLATELET VOLUME 11.3 fl (9.6-12.3); MONO # 0.6 10*3/uL (0.1-1.0); MONO % 6.7 % (3.0-9.0); NEUT # 7.5 10*3/uL (2.3-7.9); NEUT % 81.9 % (47.0-73.0); PLATELET COUNT AUTOMATED 203 10*3/uL (130-400); RED BLOOD COUNT 4.07 10*6/uL (4.10-5.10); RED CELL DISTRI WIDTH 14.4 % (0-14.5); WHITE BLOOD COUNT 9.2 10*3/uL (4.8-10.8)
[2019-12-23 06:48] LABS: ALBUMIN 3.3 gm/dl (3.1-4.5); CREATININE 1.71 mg/dL (0.55-1.02); POTASSIUM 3.2 mmol/L (3.5-5.1); TOTAL PROTEIN 6.7 gm/dL (6.4-8.2)
[2019-12-23 06:54] LABS: THYROID STIM HORMONE (HS) 2.6 uIU/ml (0.358-4.75)
[2019-12-23 07:11] LABS: INTERNATIONAL NORM RATIO > 9.3 (2.0-3.5)
--- NOTE | 2019-12-23 07:28 | NUR ---
ANSWERING SERVICE NOTIFIED OF NEW CONSULT.
--- NOTE | 2019-12-23 07:30 | NUR ---
PATIENT RESTING IN BED. PT CO FREQUENT FALLS. DENIES N/V/D. DENIES ANY PAIN. ASSESSMENT COMPLETE. RESPS EASY AND REGULAR. ROOM AIR. LAST BM 12/21. CALL LIGHT WITHIN REACH. BED IN LOWEST POSTION, BED ALARM ON.
--- NOTE | 2019-12-23 07:30 | NUR ---
NOTIFIED OF CRITICAL INR > 9.3.
--- NOTE | 2019-12-23 07:55 | NUR ---
Dr. Gutiérrez notified of wound care recommendations.
[2019-12-23 08:00] VITALS: BP 108/61
--- NOTE | 2019-12-23 08:49 | NUR ---
INFORMED PTS MEDS NEED CONTINUED AND ORTHOS WERE NEGATIVE, PT ASYMPTOMATIC.
[2019-12-23 09:19] LABS: VITAMIN D, 25-HYDROXY 61.7 ng/mL (30-100)
[2019-12-23 12:00] VITALS: BP 110/56
--- NOTE | 2019-12-23 14:00 | NUR ---
NURSES MARY LOZANO INFORMED ME PATIENT HAS NOT URINATED ALL DAY. TALKED TO PATIENT AND SHE STATES SHE URINATED THIS MORNING BEFORE WE GOT HERE AND HASN'T FELT LIKE SHE HAD TO URINATE SINCE. BLADDER SCANNED PATIENT AT THIS TIME GREATEST AMOUNT FOUND TO BE 97. CHECKED PATIENT AND PATIENT WAS WET AT THIS TIME. CHANGED PATIENT AND PULLED UP IN THIS BED WITH MARY WHITFIELD. CALL LIGHT WITHIN REACH.
--- NOTE | 2019-12-23 14:22 | NUR ---
24 HR chart check completed.
--- NOTE | 2019-12-23 14:50 | NUR ---
PHYSICAL THERAPY Physical Therapy evaluation completed on 5E with full evaluation to follow. Low complexity PT evaluation per [facility] review and evaluation, [id number]. Recommend physical therapy per plan of care and SNF upon discharge. Thank you for this referral. Gill Serra,PT,DPT
--- NOTE | 2019-12-23 15:41 | NUR ---
Occupational Therapy evaluation completed on 5E with full evaluation to follow. Recommend occupational therapy per plan of care and SNF upon discharge. Thank you for this referral. Jazmin Bauer OTR/L
[2019-12-23 16:00] VITALS: BP 106/52
--- NOTE | 2019-12-23 18:24 | NUR ---
MEDICATED WITH PRN TYLENOL PER PATIENT REQUEST FOR RIGHT SHOULDER PATIENT THAT PATIENT STATES CAME ON AFTER WORKING WITH OT. WILL ASSESS EFFECTIVENESS. CALL LIGHT WITHIN REACH. BED ALARM ON.
--- NOTE | 2019-12-23 19:24 | NUR ---
24 HR chart check completed.
[2019-12-23 20:00] VITALS: BP 95/62
--- NOTE | 2019-12-23 20:00 | NUR ---
Patient lying in bed, states she been nodding off and on. Denies any pain, states the tylenol help with rt shoulder pain. Patient requesting a regular diet so she can have meatloaf tomorrow. Patient states she had little appetite, but now would like to eat and they changed her diet. Patient doesnt want to wear the heel protectors, or scd's. Patient left with call light in reach.
[2019-12-24] VITALS: BP 104/56
[2019-12-24 06:21] LABS: BASO % 0.3 % (0.0-1.0); EOS % 0.8 % (1.0-4.0); HEMATOCRIT 31.9 % (37.0-47.0); LYMPH # 1.1 10*3/uL (1.3-4.4); LYMPH % 29.7 % (27.0-41.0); MEAN CELL VOLUME 92.7 fl (81.0-99.0); MEAN CORPUSCULAR HGB 29.9 pg (27.0-31.0); MEAN CORPUSCULAR HGB CONC 32.3 g/dl (33.0-37.0); MEAN PLATELET VOLUME 11.3 fl (9.6-12.3); MONO # 0.3 10*3/uL (0.1-1.0); MONO % 8.9 % (3.0-9.0); NEUT # 2.3 10*3/uL (2.3-7.9); PLATELET COUNT AUTOMATED 157 10*3/uL (130-400); RED BLOOD COUNT 3.44 10*6/uL (4.10-5.10); RED CELL DISTRI WIDTH 14.4 % (0-14.5); WHITE BLOOD COUNT 3.8 10*3/uL (4.8-10.8)
[2019-12-24 06:44] LABS: BUN 18 mg/dl (7-24); CHLORIDE 109 mmol/L (98-107); CREATININE 1.01 mg/dL (0.55-1.02); SODIUM 139 mmol/L (136-145)
[2019-12-24 06:48] LABS: INTERNATIONAL NORM RATIO 1.1 (2.0-3.5)
--- NOTE | 2019-12-24 07:30 | NUR ---
PATIENT RESTING IN BED. CO SOME RIGHT SHOULDER PAIN DUE TO WORKING TO PT/OT YESTERDAY AND WANTING SOME TYLNEOL. DENIES ANY N/V/D. ASSESSMENT COMPLETE. RESPS EASY AND REGULAR. INR 1.1 TODAY. CALL LIGHT WITHIN REACH. WILL MONITOR.
--- NOTE | 2019-12-24 07:51 | NUR ---
MEDICATED WITH PRN TYLENOL PER PATIENT REQUEST FOR CO RIGHT SHOULDER PAIN. WILL ASSESS EFFECTIVENESS.
[2019-12-24 08:00] VITALS: BP 114/64
--- NOTE | 2019-12-24 08:30 | NUR ---
Liner Assembler in to talk to patient. Patient states lives at home alone with her family checking in on her. There are 0 steps in the home. Physician: was Dr. Deanna Castrejon but would like to follow in the resident clinic [facility] services: none Patient's level of ADLs: MINIMAL ASSIST Patient has working utilities: yes DME: cane, walker Follow-up physician's appointment after d/c: will be made by the hospitalist nurse director upon discharge Does patient want to access PORTAL?: no Discharge plan discussed with patient. She lives at home alone with her family checking in on her. She is independent in her ADLs and uses a cane or a walker for ambulation due to arthritis in her knees. Discussed short term rehab and home health care services and she denies any home needs at this time. She states when she is discharged from the hospital her brother who is a songwriter that lives in [place] is going to come and pick her up and bring her to live with them for a short time. They do live in a 2 story home but they are going to make her bedroom in the dining room. Her brother works from home and travels a week out of the month. Her [id number] in [place] works 2 days a week. Their daughter is an BACK SHOE OPERATOR and will help take care of her. She said her brother is looking at a home with a [id number] suite that way she can be closer to them. She is not happy about the [place] weather though. When medically stable she will be discharged to home. She states her brother will provide transportation on discharge. KYLE DAMON
--- NOTE | 2019-12-24 08:30 | NUR ---
CAMPUS DEAN IN TALKING WITH PATIENT.
--- NOTE | 2019-12-24 08:51 | NUR ---
PER PATIENT TYLENOL WAS EFFECTIVE.
[2019-12-24 12:00] VITALS: BP 100/41
--- NOTE | 2019-12-24 13:19 | NUR ---
12/24/19 11:35AM VITALS: TEMP 98.2, PULSE 68, RESP 16, BP 100/41, OXYGEN SAT IS 95% ON ROOM AIR. LUNG SOUNDS ARE CLEAR AND WNL. HEART SOUNDS ARE NORMAL. LAST BOWEL MOVEMENT WAS 12/21/19. PATIENT REPORTS NO PAIN. PATIENT IS ORIENTED TO PERSON/PLACE/TIME. SKIN IS WARM, DRY AND INTACT. BROWNISH DISCOLORATION ON BILATERAL LOWER EXTREMETIES. PATIENT REPORTS IT IS DUE TO VENOUSTASIS. JEISON MARTIN/ARNALDO RICHARDS
--- NOTE | 2019-12-24 14:30 | NUR ---
ROUNDED ON PATIENT, STATED SHE WAS TIRED AND MAY TAKE A NAP. DID NOT NEED ANYTHING. JEISON MARTIN, STUDENT NURSE/VALERY RICHARDS
--- NOTE | 2019-12-24 15:46 | NUR ---
24 HR chart check completed.
[2019-12-24 16:00] VITALS: BP 100/49
--- NOTE | 2019-12-24 19:30 | NUR ---
PT RESTING IN BED. VOICES NO CONCERNS AT THIS TIME. RESPS EASY AND NON LABORED. NO S/S OF DISTRESS. NOTED. VSS. WHITE BOARD UPDATED. POC DISCUSSED W PT. CALL LIGHT WITHIN REACH. BED ALARM ON. FALL RISK PRECAUTIONS MAINTAINED
[2019-12-24 20:00] VITALS: BP 99/59
[2019-12-25] VITALS: BP 103/49
--- NOTE | 2019-12-25 03:10 | NUR ---
24 HR chart check completed.
--- NOTE | 2019-12-25 04:02 | NUR ---
Patient sleeping. Respirations relaxed and easy. Siderails up . [place] on. RESPS EASY AND NON LABORED. CALL LIGHT WITHIN REACH. BED ALARM ON. DANIELA,PEDRO
[2019-12-25 06:31] LABS: BUN 15 mg/dl (7-24); CHLORIDE 109 mmol/L (98-107); POTASSIUM 3.8 mmol/L (3.5-5.1); SODIUM 141 mmol/L (136-145)
--- NOTE | 2019-12-25 07:30 | NUR ---
PATIENT RESTING IN BED. VOICES NO CONCERNS. NO S/S OF DISCOMFORT NOTED. ASSESSMENT COMPLETE. RESPS EASY AND REGULAR. CALL LIGHT WITHIN REACH. BED ALARM ON.
--- NOTE | 2019-12-25 07:34 | NUR ---
24 HR chart check completed.
--- NOTE | 2019-12-25 07:43 | NUR ---
NOTIFIED PTS URINE CULTURE COMING BACK KLEBSIELLA.
[2019-12-25 08:00] VITALS: BP 108/52
--- NOTE | 2019-12-25 10:05 | NUR ---
RESIDENT NOTIFIED OF NEW CONSULT AND STATES SHE WILL BE IN LATER TODAY.
--- NOTE | 2019-12-25 10:26 | NUR ---
MEDICATED WITH PRN TYLENOL FOR CO RIGHT SHOULDER PAIN. WILL ASSESS EFFECTIVENESS. CALL LIGHT WITHIN REACH.
--- NOTE | 2019-12-25 11:26 | NUR ---
PER PATIENT TYLENOL EFFECTIVE.
[2019-12-25 12:00] VITALS: BP 127/48
--- NOTE | 2019-12-25 13:45 | NUR ---
PATIENT RESTING IN BED. VOICES NO CONCERNS AT THIS TIME. CALL LIGHT WITHIN REACH.
--- NOTE | 2019-12-25 15:35 | NUR ---
PATIENT SITTING UP IN CHAIR AT THIS TIME. PATIENT CO CONSTIPATION MEDICATED WITH PRN DULCOLAX.
[2019-12-25 16:00] VITALS: BP 102/48
[2019-12-25 20:00] VITALS: BP 112/59
[2019-12-26] VITALS: BP 123/64
[2019-12-26 06:49] LABS: BASO % 0.5 % (0.0-1.0); EOS # 0.2 10*3/uL (0.0-0.4); HEMATOCRIT 33.6 % (37.0-47.0); LYMPH # 1.3 10*3/uL (1.3-4.4); LYMPH % 29.8 % (27.0-41.0); MEAN CELL VOLUME 95.5 fl (81.0-99.0); MEAN CORPUSCULAR HGB 30.1 pg (27.0-31.0); MEAN CORPUSCULAR HGB CONC 31.5 g/dl (33.0-37.0); MEAN PLATELET VOLUME 12.3 fl (9.6-12.3); MONO # 0.4 10*3/uL (0.1-1.0); MONO % 8.3 % (3.0-9.0); NEUT # 2.4 10*3/uL (2.3-7.9); NEUT % 56.7 % (47.0-73.0); PLATELET COUNT AUTOMATED 151 10*3/uL (130-400); RED BLOOD COUNT 3.52 10*6/uL (4.10-5.10); RED CELL DISTRI WIDTH 14.3 % (0-14.5); WHITE BLOOD COUNT 4.2 10*3/uL (4.8-10.8)
[2019-12-26 07:25] LABS: CHLORIDE 108 mmol/L (98-107); POTASSIUM 3.8 mmol/L (3.5-5.1); SODIUM 140 mmol/L (136-145)
[2019-12-26 07:29] LABS: BUN 18 mg/dl (7-24); CREATININE 0.81 mg/dL (0.55-1.02)
[2019-12-26 08:00] VITALS: BP 124/87
--- NOTE | 2019-12-26 08:35 | NUR ---
Dr. Gutiérrez notified of wound care recommendations.
--- NOTE | 2019-12-26 09:02 | NUR ---
PT MEDICATED WITH TYLENOL 650MG PO FOR C/O CHRONIC KNEE PAIN.
--- NOTE | 2019-12-26 09:06 | NUR ---
PT MEDICATED WITH DULCOLAX PO FOR C/O CONSTIPATION. STATES SHE HAS NOT HAD A BM SINCE THU.
--- NOTE | 2019-12-26 09:25 | NUR ---
PRECERT IS REQUIRED FOR SNF. ACQUISITION LEAD FAXED NEW REFERRAL TO [facility]
--- NOTE | 2019-12-26 11:25 | NUR ---
PHYSICAL THERAPY Patient seen this am 1;1 for thereapy visit and was sitting up in bedside chair upon therapist arrival. Patient identified by name / and was joined by OT marketing operations assistant for observation this moring. Patient reports B calf sorness upon palpation / standing activities, mild B LE edema, otherwise no new c/o's. Patient was pleasant, transfering sit to stand MIN A, then ambulates 20'x 1, CGA, use of wh walker, demonstrating very slow, cautious gait pattern and mild fatiuge. Patient returned to transport w/c and remained with Transport staff for medical testing. Will continue per POC as tolerated, total treatment time 14 minutes. Lamont Pardo, DIALYSIS TECH
--- NOTE | 2019-12-26 11:40 | NUR ---
OT NOTE Pt seen this date for 15 min 1:1 therapy session. Upon arrival pt seated in recliner. Pt was identified by name and . Pt stated her muscles felt "sore and achey only when I am moving" but did not rate pain on a scale of 0-10. Pt was very impulsive this session and demostrated poor safety awareness throughout. Pt donned socks w SBA. Pt completed sit to stand transfer w ww and CGA. Pt then ambulated to transport chair in doorway simulating functional mobility w ww and CGA as transport staff had arrived to take her to get an ultrasound. Pt completed stand to sit transfer into transport chair w ww and CGA. At end of session pt seated in transport chair w transport staff. Continue w current D/C to SNF. Nalini José/AUSTIN Patel/Humberto
--- NOTE | 2019-12-26 11:43 | NUR ---
Nutritional Support Services Note: Appetite is good for meals, she is eating 100% of all meals. She receives a regular diet as ordered. Ht.5'2 Wt.253#. IBw 100-120. She is morbidly obese. Declines the need for a weight loss diet at this time. States she knows what to do, Doesn't do much actvity. Encouraged healhty eating and smaller portions. Will follow. Areas noted to be red, states it happens in the warmer weather. Vanessa Castellano Rdn Ld
[2019-12-26 12:00] VITALS: BP 98/62
--- NOTE | 2019-12-26 12:30 | NUR ---
SCHOOL OFFICE ASSISTANT IN TO SEE PT, PT STATES SHE WOULD LIKE TO GO TO A SNF PRIOR TO GOING HOME. PT PROVIDED WITH A LIST AND SHE [facility]OSE [facility]. REFERRAL WAS SENT. WILL CONTINUE TO FOLLOW.
--- NOTE | 2019-12-26 13:38 | NUR ---
PATIENT IS ACCEPTED TO [facility]. PRECERT IS BEING STARTED FOR PLACEMENT.
[2019-12-26 16:00] VITALS: BP 121/75
[2019-12-26 20:00] VITALS: BP 107/66
--- NOTE | 2019-12-26 20:00 | NUR ---
PATIENT RESTING IN BED. VOICES NO COMPLAINTS AT THIS TIME. RESPIRATIONS EASY, NON LABORED. BED IN LOWEST POSITION,CALL LIGHT WITHIN REACH. WILL CONTINUE TO MONITOR.
[2019-12-27] VITALS: BP 115/53
--- NOTE | 2019-12-27 04:00 | NUR ---
PATIENT SLEEPING, NO SIGNS OF DISTRESS. WILL CONTINUE TO MONITOR.
--- NOTE | 2019-12-27 05:27 | NUR ---
PATIENT AWAKE WHEN ENTERING PATIENTS ROOM TO GIVE MORNING MEDS, PATIENTS STATES SHE GOT A FULL NIGHTS REST. VOICES NO COMPLAINTS AT THIS TIME. WILL CONTINUE TO MONITOR.
--- NOTE | 2019-12-27 05:30 | NUR ---
24 HR chart check completed.
[2019-12-27 06:31] LABS: BASO % 0.2 % (0.0-1.0); EOS # 0.2 10*3/uL (0.0-0.4); LYMPH % 24.2 % (27.0-41.0); MEAN CELL VOLUME 95.2 fl (81.0-99.0); MEAN CORPUSCULAR HGB 29.7 pg (27.0-31.0); MEAN CORPUSCULAR HGB CONC 31.2 g/dl (33.0-37.0); MEAN PLATELET VOLUME 11.6 fl (9.6-12.3); MONO # 0.5 10*3/uL (0.1-1.0); MONO % 11.5 % (3.0-9.0); NEUT # 2.4 10*3/uL (2.3-7.9); NEUT % 57.7 % (47.0-73.0); PLATELET COUNT AUTOMATED 168 10*3/uL (130-400); RED BLOOD COUNT 3.57 10*6/uL (4.10-5.10); RED CELL DISTRI WIDTH 14.2 % (0-14.5); WHITE BLOOD COUNT 4.2 10*3/uL (4.8-10.8)
[2019-12-27 06:51] LABS: BUN 15 mg/dl (7-24); CHLORIDE 107 mmol/L (98-107); CREATININE 0.83 mg/dL (0.55-1.02); POTASSIUM 4.1 mmol/L (3.5-5.1); SODIUM 141 mmol/L (136-145)
--- NOTE | 2019-12-27 08:50 | NUR ---
PHYSICAL THERAPY Patient seen this am 1;1 for therapy visit and was supine in bed upon therapist arrival. Patient identified by name / and joined by OT certified surgical first assistant this morning for obsersation only this session. Patient was pleasant voicing no new c/o's and transfers supine to sit EOB with MIN A. Patient needed a minute or so to collect herself, then completed sit to stand CGA x 1. Patient ambulates with use of wh walker, CGA, 10'x 1 to bathroom, then additinal 40'x 1, demonstrating slow osmin, decreased stride and forward flexed standing posture. Patient returned to bedside chair with mild fatigue and remained with call light, tray table, telephone, body alarm for safety. Will cotninue per POC as tolerated, total treatment time 17 minutes. Lamont Baldwin, ANIMAL CARE SUPERVISOR
[2019-12-27 09:00] VITALS: BP 118/66
--- NOTE | 2019-12-27 09:09 | NUR ---
OT NOTE Pt seen this date 1:1 for 20 min therapy session. Upon arrival pt sitting up in bed w bed alarm activated. Pt identified by name and . Pt scooted to EOB w SBA where she stood from bedlevel w [facility] and . Pt stated "I need to have a bowel movement" and ambulated into bathroom w CGA and ww. Pt transferred to commode level w ww and [facility] utalizing grab bar for safety. Pt required Min A to pull depends down past knees d/t decreased hip flexion. Pt completed bowel movement and stood from commode level w ww and [facility]. Pt stated "My shoulder hurts too bad you'll have to wipe me" referring to the R shoulder which she rated at an 8/10 on a 0-10 pain scale resulting in Max A to complete toilet hygine. Max A required to pull depends up over hips and stomach. Then pt ambulated to sink w [facility] and to complete hand washing. Pt ambulated to recliner w and [facility] where she sat w and [facility]. Noted pt SOB resulting in education for proper breathing techniques w fair followthrough. At rest pts SpO2 read 99% and heart rate 95 bpm. Pt engaged in dynamic seated balance exercise by reaching accross all plains w BUE, crossing midline, and weight shifting demonstrating F+ balance. At end of session pt seated in recliner w body alarm activated, call light in reach and bedside tray positioned. Nalini José/AUSTIN Patel/Humberto
--- NOTE | 2019-12-27 09:49 | NUR ---
pt requested and was medicated with Tylenol for c/o generalized pain. C all light in reach. will monitor
--- NOTE | 2019-12-27 10:45 | NUR ---
medication effective per pt. will monitor
--- NOTE | 2019-12-27 11:47 | NUR ---
HAS BEEN REFERRED AND ACCEPTED TO [facility]. COVID HAS BEEN DONE. WAITING ON PRECERT TO RETURN.
[2019-12-27 12:00] VITALS: BP 120/50
--- NOTE | 2019-12-27 12:38 | NUR ---
SUPERVISOR [employer]IT[employer] FAXED UPDATES TO [facility].
--- NOTE | 2019-12-27 14:41 | NUR ---
PRECERT IS STILL PENDING.
[2019-12-27 16:00] VITALS: BP 110/50; BP 114/48
--- NOTE | 2019-12-27 16:30 | NUR ---
Patient resting quietly with no c/o discomfort. Respirations easy and regular. Vital signs stable. No overt distress. VIRGINIA WOODS R
--- NOTE | 2019-12-27 17:28 | NUR ---
PT REQUESTED AND WAS MEDICATED WITH [facility]CO FOR C/O GENERALIZED PAIN. CALL LIGHT IN REACH. WILL MONITOR
--- NOTE | 2019-12-27 18:15 | NUR ---
PT STATES MEDICATION EFFECTIVE. CALL LIGHT IN REACH. WILL MONITOR
--- NOTE | 2019-12-27 19:10 | NUR ---
REPORT RECEIVED FROM TASH RICHARDS. PT LYING IN BED AT THIS TIME. VOICES NO COMPLAINTS, CALL LIGHT IN REACH
[2019-12-27 20:00] VITALS: BP 102/47
--- NOTE | 2019-12-27 21:00 | NUR ---
PT WATCHING TV AT THIS TIME. CALL LIGHT IN REACH
--- NOTE | 2019-12-27 23:30 | NUR ---
PT LYING IN BED SLEEPING AT THIS TIME. CALL LIGHT IN REACH
[2019-12-28] VITALS: BP 115/63
--- NOTE | 2019-12-28 01:30 | NUR ---
SLEEPING AT THIS TIME. CALL LIGHT IN REACH
--- NOTE | 2019-12-28 05:40 | NUR ---
PT ASLEEP AT THIS TIME. NO S/S OF DISTRESS NOTED. CALL LIGHT IN REACH
[2019-12-28 07:08] LABS: BASO % 0.5 % (0.0-1.0); EOS # 0.1 10*3/uL (0.0-0.4); EOS % 3.3 % (1.0-4.0); LYMPH % 23.8 % (27.0-41.0); MEAN CELL VOLUME 96.6 fl (81.0-99.0); MEAN CORPUSCULAR HGB 29.8 pg (27.0-31.0); MEAN CORPUSCULAR HGB CONC 30.9 g/dl (33.0-37.0); MEAN PLATELET VOLUME 11.1 fl (9.6-12.3); MONO # 0.5 10*3/uL (0.1-1.0); MONO % 12.6 % (3.0-9.0); NEUT # 2.5 10*3/uL (2.3-7.9); NEUT % 58.1 % (47.0-73.0); PLATELET COUNT AUTOMATED 187 10*3/uL (130-400); RED BLOOD COUNT 3.52 10*6/uL (4.10-5.10); RED CELL DISTRI WIDTH 14.5 % (0-14.5); WHITE BLOOD COUNT 4.2 10*3/uL (4.8-10.8)
[2019-12-28 07:37] LABS: BUN 12 mg/dl (7-24); CHLORIDE 104 mmol/L (98-107); POTASSIUM 3.9 mmol/L (3.5-5.1); SODIUM 139 mmol/L (136-145)
[2019-12-28 07:39] LABS: CREATININE 0.77 mg/dL (0.55-1.02)
[2019-12-28 08:00] VITALS: BP 126/72
--- NOTE | 2019-12-28 09:00 | NUR ---
Patient resting quietly with no c/o discomfort. Respirations easy and regular. Vital signs stable. No overt distress. VIRGINIA WOODS R
--- NOTE | 2019-12-28 09:00 | NUR ---
PHYSICAL THERAPY Patient seen this am 1;1 for therapy visit and was sitting up in bedside chair upon therapist arrival. Patient identified by name / and was joined by OT assistant librarian for observation this session. Patient reports increaed B knee stiffness / soreness this moring, stating she did 100 reps of LE ex yesterday. Patient educated on proper HEP and instructed to complete only 2 x 10 reps, twice addison PRN or tolerated. Patient transfers sit to stand CGA and ambulates with use of wh walker, CGA, 45'x 1, demonstrating "waddling" gait pattern, decreased stride and quick onset of fatigue. Patient needed v/c to increase stride, improved upright standing posture and returend to bedside chair with increased fatigue. Patient remained semi reclined with B LE's elevated to control LE edema, with call light, tray table, telephone and body alarm for safety. Will continue per POC as tolerated, total treatment time 16 minutes. Lamont Baldwin, MANAGER TRADING
--- NOTE | 2019-12-28 09:10 | NUR ---
OT NOTE Pt seen this date 1:1 for 22 min therapy session. Upon arrival pt seated in recliner w c/o stiffness in B knees. Noted edema in BLE this date. Pt donned socks w SBA. Pt stood from bedside chair w ww and CGA. Pt stood for aprox 3 min before requesting to sit down for a rest break. Pt transferred from standing to seated in bedside chair w ww and Min A d/t impulsiveness to return to chair and Min verbal cues for technique w poor followthrough resulting in pt "plopping" into bedside chair. Noted pt fearful of falling this date and cautious resulting in reeducation on safety and energy conservation. Pt stood from bedside chair and ambulated into bathroom w ww and CGA. Pt completed transfer onto commode w ww and CGA requiring one verbal cue for hand placement on grab bar. After toileting pt stood from commode level w ww and CGA requiring Max A to complete toilet hygine d/t limited R shoulder extension/external rotation and voiced anxiety while standing without UE support. Pt ambulated back to bedside chair w ww and CGA requiring education to "pepper picker feet" when walking for safety d/t R foot drag w fair followthrough. Pt returned to seated in bedside chair w ww and CGA. Pt educated on importance of edema mgmt and encouraged to elevate BLE, pt agreeable. At end of session pt reclined in bedside chair w body alarm activated, call light in reach and bedside table in place. Continue w current D/C to SNF. Nalini José/AUSTIN Patel/Humberto
--- NOTE | 2019-12-28 09:17 | NUR ---
PRECERT HAS BEEN OBTAINED. PATIENT CAN GO TO [facility] IF MEDICALLY STABLE. LABORATORY ENGINEER NOTIFIED RN HOSPITALIST COORDINATOR LUPE.
--- NOTE | 2019-12-28 09:23 | NUR ---
CHILD DEVELOPMENT ASSOCIATE TEACHER COMPLETED HENS.
--- NOTE | 2019-12-28 10:39 | NUR ---
Dr. Gutiérrez notified of wound care recommendations
[2019-12-28] MEDS ORDERED: WARFARIN SOD5 MG PO (11:44)
[2019-12-28] MEDS ORDERED: CIPROFLOXACIN500 M4 PO (11:44)
[2019-12-28 12:00] VITALS: BP 138/69
--- NOTE | 2019-12-28 13:36 | NUR ---
MANAGER ANIMATION RECEIVED NOTICE OF THE PATIENTS DISCHARGE. MANAGER ANIMATION SPOKE WITH SUSIE BONILLA, MANAGER ANIMATION ARRANGED FOR A 4PM TRANSPORT WITH [facility]. MANAGER ANIMATION NOTIFIED [facility]. MANAGER ANIMATION ATTEMPTED TO REACH PATIENTS BROTHER, NO MESSAGE WAS LEFT. WILL ATTEMPT TO REACH BACK OUT TO INFORM THE BROTHER.
--- NOTE | 2019-12-28 14:17 | NUR ---
DEPARTMENT MGR LEFT MESSAGE ON PATIENTS BROTHERS VOICEMAIL EXPLAINING DISCHARGE AND TRANSPORT TIME.
--- NOTE | 2019-12-28 15:40 | NUR ---
Discharge instructions reviewed with patient/family. Patient receptive and verbalizes understanding. Follow-up care arranged. Written instructions given to patient/family. VIRGINIA WOODS
--- NOTE | 2019-12-28 16:02 | NUR ---
REPORT GIVEN TO VIRGINIA AT L.
--- NOTE | 2019-12-29 07:43 | NUR ---
PHYSICAL THERAPY CO-SIGN I approve of the Physical Therapy notes written above. Yara Ornelas PT
--- NOTE | 2019-12-29 07:47 | NUR ---
OCCUPATIONAL THERAPY CO-SIGN I approve of the Occupational Therapy notes written above. GENA DAVIDSON, OTR/L
== END 2019-12-28 15:40 | disposition other institution (70) | DRG 872 ==
LOC: ED 00:18 → EDHOLD 02:07 → 5E 02:07
PROVIDERS: Emergency Medicine; Family Medicine; Hospitalist; Internal Medicine; ADMIT Emergency Medicine
DX: A41.9 Sepsis, unspecified organism (principal); N17.9 Acute kidney failure, unspecified; N39.0 Urinary tract infection, site not specified; E44.1 Mild protein-calorie malnutrition; E87.2 Acidosis; I82.509 Chronic embolism and thrombosis of unspecified deep veins of unspecified lower extremity; I47.2 Ventricular tachycardia; Z68.42 Body mass index [BMI] 45.0-49.9, adult; E87.6 Hypokalemia; B37.2 Candidiasis of skin and nail; N18.3 Chronic kidney disease, stage 3 (moderate); E66.01 Morbid (severe) obesity due to excess calories; F32.9 Major depressive disorder, single episode, unspecified; K59.1 Functional diarrhea; I12.9 Hypertensive chronic kidney disease with stage 1 through stage 4 chronic kidney disease, or unspecified chronic kidney disease; I87.2 Venous insufficiency (chronic) (peripheral); E78.00 Pure hypercholesterolemia, unspecified; F41.1 Generalized anxiety disorder; E86.0 Dehydration; Z20.828 Contact with and (suspected) exposure to other viral communicable diseases; K59.00 Constipation, unspecified; T45.515A Adverse effect of anticoagulants, initial encounter; Y92.89 Other specified places as the place of occurrence of the external cause; Z51.81 Encounter for therapeutic drug level monitoring; Z79.01 Long term (current) use of anticoagulants; Z90.710 Acquired absence of both cervix and uterus; Z79.899 Other long term (current) drug therapy; Z86.711 Personal history of pulmonary embolism; Z80.8 Family history of malignant neoplasm of other organs or systems; Z82.0 Family history of epilepsy and other diseases of the nervous system; Z88.1 Allergy status to other antibiotic agents; Z85.42 Personal history of malignant neoplasm of other parts of uterus

== ENCOUNTER 2020-01-15 15:06 | Inpatient (IN) | payer OTHER ==
[~2020-01-15] VITALS: Ht 157.5 cm; Wt 110.8 kg
[~2020-01-15 15:06] MED LIST changes: +CIPROFLOXACIN500 M4 PO; +WARFARIN SOD5 MG PO
[2020-01-15 15:15] VITALS: BP 117/45
[2020-01-15 15:59] LABS: HEMATOCRIT 42.8 % (37.0-47.0); MEAN CELL VOLUME 94.1 fl (81.0-99.0); MEAN CORPUSCULAR HGB 30.1 pg (27.0-31.0); MEAN PLATELET VOLUME 11.2 fl (9.6-12.3); PLATELET COUNT AUTOMATED 246 10*3/uL (130-400); RED BLOOD COUNT 4.55 10*6/uL (4.10-5.10); RED CELL DISTRI WIDTH 14.4 % (0-14.5)
[2020-01-15 16:07] LABS: INTERNATIONAL NORM RATIO 4.3 (2.0-3.5)
[2020-01-15 16:14] LABS: ALBUMIN 3.5 gm/dl (3.1-4.5); CREATININE 1.62 mg/dL (0.55-1.02); POTASSIUM 3.3 mmol/L (3.5-5.1); TOTAL PROTEIN 7.8 gm/dL (6.4-8.2)
[2020-01-15 16:15] LABS: PLATELET SUFFICIENCY NORMAL (NORMAL); TOTAL CELLS COUNTED 100 #CELLS
[2020-01-15] MEDS ORDERED: COUMADIN4 M2 PO (17:34)
[2020-01-15 18:10] VITALS: BP 108/91
[2020-01-16] VITALS: BP 101/55
[2020-01-16 07:12] LABS: BASO % 0.5 % (0.0-1.0); EOS # 0.1 10*3/uL (0.0-0.4); EOS % 1.2 % (1.0-4.0); HEMATOCRIT 37.4 % (37.0-47.0); LYMPH # 1.6 10*3/uL (1.3-4.4); LYMPH % 39.4 % (27.0-41.0); MEAN CELL VOLUME 94.9 fl (81.0-99.0); MEAN CORPUSCULAR HGB 29.9 pg (27.0-31.0); MEAN CORPUSCULAR HGB CONC 31.6 g/dl (33.0-37.0); MEAN PLATELET VOLUME 11.2 fl (9.6-12.3); MONO # 0.4 10*3/uL (0.1-1.0); MONO % 8.9 % (3.0-9.0); NEUT # 2.1 10*3/uL (2.3-7.9); NEUT % 49.8 % (47.0-73.0); PLATELET COUNT AUTOMATED 210 10*3/uL (130-400); RED BLOOD COUNT 3.94 10*6/uL (4.10-5.10); RED CELL DISTRI WIDTH 14.6 % (0-14.5); WHITE BLOOD COUNT 4.2 10*3/uL (4.8-10.8)
[2020-01-16 07:26] LABS: CREATININE 1.11 mg/dL (0.55-1.02); POTASSIUM 3.5 mmol/L (3.5-5.1)
[2020-01-16 10:16] LABS: BILIRUBIN NEGATIVE (NEGATIVE); BLOOD NEGATIVE (NEGATIVE); CLARITY SL CLOUDY (CLEAR); COLOR YELLOW (YELLOW); GLUCOSE NEGATIVE (NEGATIVE); KETONE TRACE (NEGATIVE); LEUKO ESTERASE NEGATIVE (NEGATIVE); NITRITE NEGATIVE (NEGATIVE); UROBILINOGEN 0.2 E.U./dl (0.2-1.0)
[2020-01-16 10:17] LABS: BACTERIA 1+
== END 2020-01-16 11:11 | disposition left against medical advice (07) | DRG 640 ==
LOC: ED 15:06 → EDHOLD 17:01 → 5E 17:01
PROVIDERS: Family Medicine; Internal Medicine; Physician Assistant; ADMIT Emergency Medicine
DX: E86.0 Dehydration (principal); N17.0 Acute kidney failure with tubular necrosis; E44.1 Mild protein-calorie malnutrition; D68.9 Coagulation defect, unspecified; Z68.44 Body mass index [BMI] 60.0-69.9, adult; I82.509 Chronic embolism and thrombosis of unspecified deep veins of unspecified lower extremity; E87.2 Acidosis; E87.6 Hypokalemia; B37.2 Candidiasis of skin and nail; E78.00 Pure hypercholesterolemia, unspecified; E03.9 Hypothyroidism, unspecified; F32.9 Major depressive disorder, single episode, unspecified; F41.1 Generalized anxiety disorder; E66.01 Morbid (severe) obesity due to excess calories; I87.2 Venous insufficiency (chronic) (peripheral); D64.9 Anemia, unspecified; I12.9 Hypertensive chronic kidney disease with stage 1 through stage 4 chronic kidney disease, or unspecified chronic kidney disease; Z53.29 Procedure and treatment not carried out because of patient's decision for other reasons; N18.3 Chronic kidney disease, stage 3 (moderate); E78.5 Hyperlipidemia, unspecified; M47.9 Spondylosis, unspecified; E87.8 Other disorders of electrolyte and fluid balance, not elsewhere classified; K58.0 Irritable bowel syndrome with diarrhea; Z88.1 Allergy status to other antibiotic agents; Z90.710 Acquired absence of both cervix and uterus; Z82.0 Family history of epilepsy and other diseases of the nervous system; Z80.8 Family history of malignant neoplasm of other organs or systems; Z82.49 Family history of ischemic heart disease and other diseases of the circulatory system; Z79.01 Long term (current) use of anticoagulants; Z86.711 Personal history of pulmonary embolism; Z85.42 Personal history of malignant neoplasm of other parts of uterus